=== PATIENT | female | born 1990 | race Caucasian/White ===

== ENCOUNTER 2017-08-15 09:42 | Inpatient (IN) | payer BC, OTHER ==
[2017-08-14 12:44] VITALS: BMI 44.3
[2017-08-15] MEDS ORDERED: fentaNYL CITRATE 250 MCG/5 ML VIAL ONE (11:26)
[2017-08-15] MEDS ORDERED: LIDOCAINE HCL/PF 2% SDV 5ML VIAL ONE (11:26)
[2017-08-15] MEDS ORDERED: DEXAMETHASONE SOD PHOSPHATE 4 MG/1 ML VIAL ONE (11:26)
[2017-08-15] MEDS ORDERED: PROPOFOL 20 ML ONE (11:26)
[2017-08-15] MEDS ORDERED: MIDAZOLAM HCL 2 MG/2 ML SINGLE DOSE VIAL ONE (11:26)
[2017-08-15] MEDS ORDERED: ROCURONIUM BROMIDE 50 MG/5 ML VIAL ONE (11:26)
[2017-08-15] MEDS ORDERED: BUPIVACAINE HCL/PF 0.5% (5MG/ML) 10 ML VIAL ONE (11:47)
[2017-08-15] MEDS ORDERED: ceFAZolin SODIUM 1 GM VIAL IVPB ONE (12:05)
[2017-08-15] MEDS ORDERED: ceFAZolin SODIUM 1 GM VIAL ONE (12:05)
[2017-08-15] MEDS ORDERED: BUPIVACAINE HCL/PF 0.5% (5MG/ML) 10 ML VIAL IJ ONE ×2 (13:20→13:30)
[2017-08-15] MEDS ORDERED: GLYCOPYRROLATE 0.2 MG/1 ML VIAL ONE (13:22)
[2017-08-15] MEDS ORDERED: NEOSTIGMINE METHYLSULFATE 0.5 MG/ML - 10 ML MDV ONE (13:22)
[2017-08-15] MEDS ORDERED: SODIUM CHLORIDE 1,000 ML IV SCH (13:30)
--- NOTE | 2017-08-15 13:37 | OP ---
Operative Note - Note: Operative Date: 08/15/17 Pre-Operative Diagnosis: Morbid Obesity. Elevated LFT Operation: Laparoscopic Vertical SLeeve Gastrectomy. Wedge Biopsy of Liver. Diagnostic Laparoscopy Findings: Greater curve sleeve gastrectomy performed with #[address] Wedge biopsy taken of enlarged left lobe of liver Post-Operative Diagnosis: Same as Pre-op (Hepatomegaly) Surgeon: Gary Pang Furnace Checker: Carlos Enrique Quevedo Anesthesia: General Specimens Removed: Greater curve of stomach. Wedge biopsy of liver Estimated Blood Loss (mls): 30 Operative Report Dictated: Yes
[2017-08-15] MEDS: ONDANSETRON 4 MG/2 ML VIAL IVPUSH PRN ×2 (13:45→18:16)
[2017-08-15] MEDS: METOCLOPRAMIDE HCL INJECTION 10 MG/2 ML VIAL IVPUSH SCH ×2 (14:00→20:42)
[2017-08-15] MEDS ORDERED: FAMOTIDINE 20 MG PREMIXED IVPB IVPB ONE (14:10)
[2017-08-15 14:38] LABS: ALBUMIN 3.4 g/dl (3.4-5.0); ANION GAP 5 (8-16); BILIRUBIN,TOTAL 0.2 mg/dL (0.2-1.0); BLOOD UREA NITROGEN 11 mg/dL (7-18); CALCIUM 8.7 mg/dL (8.5-10.1); CHLORIDE 103 mmol/L (98-107); CO2 29 mmol/L (21-32); CREATININE 0.7 mg/dL (0.55-1.02); GLUCOSE,RANDOM 180 mg/dL (74-106); POTASSIUM 4.1 mmol/L (3.5-5.1); SGOT/AST 116 U/L (15-37); SGPT/ALT 115 U/L (12-78); SODIUM 137 mmol/L (136-145); TOT PROT 7.4 g/dl (6.4-8.2)
[2017-08-15 14:39] LABS: ALK PHOS 86 U/L (45-117); HEMATOCRIT 39.6 % (32.4-45.2); HEMOGLOBIN 13.2 GM/dL (10.7-15.3); MCHC 33.4 g/dl (32.0-36.0); MEAN CELL VOLUME 89.9 fl (80-96); MEAN PLT VOLUME 8.5 fl (7.5-11.1); PLATELET COUNT 495 K/MM3 (134-434); RBC 4.41 M/mm3 (3.60-5.2); RDW 13.7 % (11.6-15.6); WHITE BLOOD COUNT 22.5 K/mm3 (4.0-10.0)
--- NOTE | 2017-08-15 15:13 | OP ---
DATE OF OPERATION: 08/15/2017 PREOPERATIVE DIAGNOSES. 1. Morbid obesity. 2. Elevated liver function tests. POSTOPERATIVE DIAGNOSES: 1. Morbid obesity. 2. Elevated liver function tests. 3. Hepatomegaly. PROCEDURE PERFORMED: 1. Laparoscopic vertical sleeve gastrectomy. 2. Wedge biopsy left lobe of the liver. 3. Diagnostic laparoscopy. OPERATING SURGEON: Gary Pang MD STEEL HANGER: Carlos Enrique Quevedo MD ANESTHESIA: General. OPERATIVE PROCEDURE: The patient was brought into the operating room and placed on the OR table in the supine position. All precautions were taken initially including padding for the back and the feet and Venodyne boots were placed on both lower extremities. At that point the abdomen was prepped and draped in the usual manner. A Veress needle was placed in the left upper quadrant and a pneumoperitoneum was established. A No. 12 bladeless trocar was placed into the left upper quadrant and through that the trocar the laparoscopic camera was placed. Under direct vision a No. 15 bladeless trocar was placed in the midline in the supraumbilical position followed by a No. 5 bladeless trocar in the right upper quadrant and a No. 5 bladeless trocar below the left costal margin. A Ion liver retractor was then placed in the epigastrium to retract the left lobe of the liver. The left lobe was noted to be extremely enlarged, heavy, and boggy. It was also noted to have elevated liver function tests on the preoperative blood work. We therefore decided a wedge biopsy would be perfumed. Using the LigaSure a portion of the inferior edge of the left lobe of the liver was biopsied off in a triangular shape and sent off the field to pathology the specimen. The liver parenchyma had minor bleeding which was easily controlled with the electrocautery. At this point the patient was placed in a 20-degree reverse Trendelenburg position by Anesthesia. At this point the pylorus was noted and 6 cm were measured proximally. Here, the operating surgeon lifted the stomach toward the anterior abdominal wall as the coding assistant surgeon retracted the gastrocolic ligament inferiorly. The LigaSure device was used to dissect the gastrocolic ligament and then the short gastric vessels off the greater curve of the stomach. This continued in a superior and vertical direction until the final short gastric vessel between the superior pole of the spleen and proximal fundus was divided. At this point Anesthesia advanced a No. 40 Bougie. With the bougie held along the lesser curve, a series of sailaja were performed the first 2 being black load sailaja 6 cm in length along the bougie. This was followed by a series of purple load sailaja also 6 cm and along the bougie until the final staple was fired in the left upper quadrant. The greater curve was now completely detached from the lesser curve. It should be noted that prior to firing each stapler that both the anterior and posterior weaver were checked that they were equal and in the area of the esophagogastric junction approximately 1 to 1-1/2-cm of serosa remained on the anterior and posterior surfaces. At this juncture, Dr. Quevedo, the coding assistant surgeon, stepped out of case and performed an upper endoscopy. The details will be described in his operative note but essentially showed that there were no signs of leaks in the staple line and he was able to advance the scope all the way to the pylorus showing no obstruction. At this point the greater curve was removed with a No. 15 trocar site and sent off the field as a specimen to pathology. Under direct vision the No. 15 and No. 12 trocar sites were closed with the Endo Closure device to prevent internal hernia and to prevent bleeding. Under direct vision all trocars were removed and pneumoperitoneum was released. All trocar sites received 0.25% Marcaine and they were all closed with 4-0 Biosyn in a subcuticular fashion. The No. 15 midline trocar was first closed with 3-0 Vicryl in the subcutaneous tissue then followed by 4-0 Biosyn in a subcuticular fashion. Dressings were applied. The patient awoke from anesthesia and was transferred out of the operating room to the recovering room in stable condition. EXPECTED BLOOD LOSS: 30 mL. Perla [id number]
[2017-08-15] MEDS: MEPERIDINE HCL CARPU-JECT 50 MG/1 ML DISP.SYRIN IM PRN (17:59)
[2017-08-15] MEDS: ENOXAPARIN NA (PORCINE) 40 MG/0.4 ML DISP.SYRIN SQ SCH (22:09)
[2017-08-15] MEDS: FAMOTIDINE 20 MG/50 ML IVPB 20 MG/50 ML MG IVPB SCH (22:14)
[2017-08-16] MEDS: MEPERIDINE HCL CARPU-JECT 50 MG/1 ML DISP.SYRIN IM PRN ×2 (00:14→09:27)
[2017-08-16] MEDS: METOCLOPRAMIDE HCL INJECTION 10 MG/2 ML VIAL IVPUSH SCH ×3 (01:15→14:11)
[2017-08-16 08:23] LABS: HEMATOCRIT 35.7 % (32.4-45.2); HEMOGLOBIN 11.9 GM/dL (10.7-15.3); MCH 29.6 pg (25.7-33.7); MCHC 33.4 g/dl (32.0-36.0); MEAN CELL VOLUME 88.8 fl (80-96); MEAN PLT VOLUME 8.5 fl (7.5-11.1); PLATELET COUNT 433 K/MM3 (134-434); RBC 4.02 M/mm3 (3.60-5.2); RDW 13.7 % (11.6-15.6)
[2017-08-16 08:34] LABS: ANION GAP 13 (8-16); BLOOD UREA NITROGEN 8 mg/dL (7-18); CALCIUM 8.5 mg/dL (8.5-10.1); CHLORIDE 101 mmol/L (98-107); CO2 26 mmol/L (21-32); POTASSIUM 4.5 mmol/L (3.5-5.1); SODIUM 140 mmol/L (136-145)
[2017-08-16 08:39] LABS: ALK PHOS 79 U/L (45-117); BILIRUBIN,TOTAL 0.4 mg/dL (0.2-1.0); CREATININE 0.6 mg/dL (0.55-1.02); GLUCOSE,RANDOM 139 mg/dL (74-106); SGOT/AST 72 U/L (15-37); SGPT/ALT 94 U/L (12-78); TOT PROT 6.7 g/dl (6.4-8.2)
--- NOTE | 2017-08-16 09:25 | PN ---
Progress Note (short form) - Note Progress Note: POD #1 - s/p sleeve gastrectomy, EGD, liver biopsy under general anesthesia. VSS. Pt. doing well, resting comfortably in bed. No complaints. No apparent anesthetic complications noted. Continue current care.
[2017-08-16] MEDS: FAMOTIDINE 20 MG/50 ML IVPB 20 MG/50 ML MG IVPB SCH (09:27)
[2017-08-16] MEDS: ENOXAPARIN NA (PORCINE) 40 MG/0.4 ML DISP.SYRIN SQ SCH (09:27)
[2017-08-16] MEDS ORDERED: ACETAMINOPHEN 325 MG TABLET (FP) PO PRN (14:28)
[2017-08-16] MEDS ORDERED: oxyCODONE HCL 5 MG TABLET PO PRN (14:28)
[2017-08-16] MEDS ORDERED: ONDANSETRON 4 MG TABLET PO PRN (14:31)
--- NOTE | 2017-08-16 14:36 | PN ---
Progress Note (short form) - Note Progress Note: POD#1 Afebrile; VSS P-70-88 Pt doing well No N/V Tolerating clear liquids- 2 oz PO TID UGI- no leak, no obstruction WBC-20 (decreased) H/H-11.9/35.7 P/E- all trocar sites clean, dry P- PO clear liquids- 3 oz PO 4-5 times per day Cont DVT prophylaxis Encourage OOB-ambulate, incentive spirometer
[2017-08-16 15:27] VITALS: BP 145/89; PULSE 74; TEMP 98.2
[2017-08-16] MEDS ORDERED: METOCLOPRAMIDE HCL 10 MG TABLET (FP) PO SCH (16:30)
--- NOTE | 2017-08-19 15:56 | PATH ---
Surgical Pathology Report Patient Name: WILLIE MARROQUIN Med. Rec. #: [id number] /Age/Gender: 1990 (Age: 26) / F Account: [id number] Location: 4 W TELEMETRY U Taken: 08/15/2017 Received: 08/16/2017 Reported: 08/19/2017 Physicians: Gary Pang M.D. Specimen(s) Received A: GREATER CURVATURE STOMACH B: LIVER BIOPSY Clinical History Morbid obesity Final Diagnosis A. STOMACH, GREATER CURVATURE, SLEEVE GASTRECTOMY: PORTION OF GASTRIC FUNDUS WITH NO PATHOLOGIC CHANGES. IMMUNOSTAIN FOR H. PYLORI IS NEGATIVE. B. LIVER, WEDGE BIOPSY: MACROVESICULAR STEATOHEPATITIS, SEVERE (GRADE 3 OF 3). 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 IRON STAIN IS NEGATIVE FOR SIDEROSIS. Electronically Signed Rolf Mendez M.D. Gross Description A. Received in formalin, labeled "greater curvature of stomach," is a 95 gram, 17x 3.5 x 2 cm. portion of stomach with a stapled margin of resection. The serosa is phipps-brumfield with minimal attached fat. The mucosa is phipps-pink with normal folds. No mucosal masses are identified. Morning Nanny sections are submitted in one cassette. B. Received in formalin labeled "liver biopsy," phipps, irregular portion of soft tissue, consistent with a liver biopsy measuring 2 x 1 x 0.6 cm. The entire specimen is submitted in one cassette. GUS/08/16/2017 deuce/08/16/2017
== END 2017-08-16 18:38 | disposition home or self-care (01) | DRG 621 ==
LOC: JSAMEDAYSX 09:42 → J4W 15:49
PROVIDERS: ADMIT Surgery; ATTEND Surgery
PROC: 0DB64Z3 Excision of Stomach, Percutaneous Endoscopic Approach, Vertical (ICD-10-PCS; principal; 2017-08-15 11:00)
PROC: 0FB24ZX Excision of Left Lobe Liver, Percutaneous Endoscopic Approach, Diagnostic (ICD-10-PCS; 2017-08-15 11:00)
PROC: 0DJ08ZZ Inspection of Upper Intestinal Tract, Via Natural or Artificial Opening Endoscopic (ICD-10-PCS; 2017-08-15 11:00)
DX: E66.01 Morbid (severe) obesity due to excess calories (principal); Z68.41 Body mass index [BMI] 40.0-44.9, adult; R16.0 Hepatomegaly, not elsewhere classified
CPT/HCPCS: 36415; 74241-TC-FY; 80053; 85027; 88305-TC; 88307-TC; 94760; J7030